=== PATIENT | female | born 1995 | race Caucasian/White ===

== ENCOUNTER → 2016-07-29 | Outpatient (CLI) | payer OTHER ==
[~2016-07-29] MED LIST: ACNE MED; AMOXIL875 MG; IBUPROFEN PO; IBUPROFEN800 MG PO; METHYLIN20 MG PO; NAPROSYN250 M1 PO; NO MEDICATIONS; ORUDIS75 M1 PO; PHENERGAN25 M1 PO; VICODIN 5/500 T1 TAB PO; VIVANCE PO; VYVANSE30 MG PO
--- NOTE | ~2016-07-29 | US6 ---
[facility] A Service of [facility] RADIOLOGY TEXT RESULTS PATIENT: PHIL ABEL LOCATION: [facility] : [birth year] UNIT #: [id number] AGE: [address]: Guillaume Kerr III, MD SEX: F ORDER DR: [id number] [facility] [address] [facility]. [place], [place] [address] [id number] O MR#: [id number] Acc #: [id number] NAME: PHIL ABEL. : 1995 SEX: F STUDY DATE/TIME: 07/29/2016 7:18 UNIT: [facility] ROOM: STUDY DESCRIPTION: US Abdominal Limited Attending Physician: Guillaume Kerr III, M.D. Ordering Physician: Guillaume Kerr III, M.D. Primary Care Physician: Alexandria Webb M.D. MEDICAL IMAGING REPORT This report is preliminary unless electronic signature is present EXAM Right upper quadrant abdominal ultrasound INDICATION Abdominal pain and nausea for the past month. Lap-Band surgery February 2016. PROCEDURE Parsosn-scale and Doppler imaging right upper quadrant of the abdomen. COMPARISON 07/08/2015. FINDINGS Pancreas mostly obscured by bowel gas and not well seen. The liver measures 14 cm. No liver mass on submitted images. Right kidney measures 9.5 cm. No hydronephrosis. There are stones in the gallbladder. Gallbladder is contracted. The gallbladder wall measures approximately 4 mm in thickness. No pericholecystic fluid. Common duct measures 2 mm. IMPRESSION Cholelithiasis. Gallbladder is contracted. There is mild gallbladder wall thickening which probably is related to contraction. There is no pericholecystic fluid or bile duct dilation. Findings equivocal for acute cholecystitis. If there is ongoing clinical suspicion, HIDA scan may be helpful. Dictated by... Gasper Lu M.D. THIS IS AN ELECTRONICALLY VERIFIED REPORT Gasper Lu M.D. at 08/01/2016 7:41 AM [facility] A Service of [facility] RADIOLOGY TEXT RESULTS PATIENT: PHIL ABEL LOCATION: [facility] #: [id number] : [birth year] UNIT #: [id number] AGE: [address]: Guillaume Kerr III, MD SEX: F ORDER DR: PARMINDER/meghann TD: 07/29/2016 11:10 JOB #: [id number] MEDICAL IMAGING REPORT Page 1 of 1 COPY
== END | disposition home or self-care (01) ==
LOC: CGUS 06:52
DX: R10.11 Right upper quadrant pain (principal); R11.0 Nausea; K80.21 Calculus of gallbladder without cholecystitis with obstruction
CPT/HCPCS: 76705

== ENCOUNTER 2016-08-04 16:38 | Emergency (ER) | payer OTHER ==
[2016-08-04 17:29] LABS: BASOPHIL# 0.1 X10e3 (0-0.3); BASOPHIL% 0.6 % (0-2.5); EOSINOPHIL# 0.1 X10e3 (0-0.7); EOSINOPHIL% 1.2 % (0.0-7.0); HEMATOCRIT 44.9 % (35.0-45.0); HEMOGLOBIN 14.5 gm/dL (12.0-16.0); LYMPHOCYTE# 2.8 X10e3 (1.0-3.5); LYMPHOCYTE% 25.5 % (17.0-45.0); MEAN CELL VOLUME 82.1 FL (83-96); MEAN CORPUSCULAR HEMOGLOBIN 26.5 PG (28-34); MEAN CORPUSCULAR HGB CONC 32.3 g/dL (30-36); MONOCYTE# 0.7 X10e3 (0-1.0); MONOCYTE% 6.3 % (3.0-12.0); NEUTROPHIL# 7.2 X10e3 (1.5-7.1); NEUTROPHIL% 66.4 % (40-75); PLATELET COUNT 278 X10e3 (140-420); RED BLOOD COUNT 5.47 X10e (3.90-5.30); RED CELL DISTRIBUTION WIDTH 14.6 % (11.0-15.5); WHITE BLOOD COUNT 10.9 X10e3 (4.0-10.5)
[2016-08-04 17:33] LABS: DIFF IND NO
[2016-08-04 17:54] LABS: URINE SOURCE CLEAN CATCH
[2016-08-04 17:56] LABS: ALBUMIN SERUM 4.6 g/dL (3.5-5.0); BILIRUBIN, DIRECT 0.1 mg/dL (0.0-0.2); BILIRUBIN,INDIRECT 0.9 mg/dL (0.0-0.9); BUN/CREATININE RATIO 18.57; CALCIUM SERUM 9.6 mg/dL (8.4-10.2); CREATININE SERUM 0.7 mg/dL (0.6-1.4); GLOM FILT RATE Estimated 125.6 mL/min (>60); POTASSIUM 3.7 mmol/L (3.5-5.1)
[2016-08-04 18:00] LABS: URINE APPEARANCE CLOUDY; URINE BILIRUBIN NEG (NEG); URINE BLOOD NEG (NEG); URINE COLOR YELLOW; URINE GLUCOSE NEG (NEG); URINE KETONE TRACE (NEG); URINE LEUKOCYTE ESTERASE TRACE (NEG); URINE NITRATE NEG (NEG); URINE PH 5.5 (5-8); URINE PROTEIN NEG (NEG); URINE SPECIFIC GRAVITY 1.026 (1.003-1.035)
[2016-08-04 18:03] LABS: CULTURE INDICATED? YES; URBCS1 AUWI 0-2 /[HPF] (0-2); URINE BACTERIA AUWI 1+ (NEGATIVE); URINE SQUAMOUS EPITHELIAL CELL MOD /[HPF]
[2016-08-09] MEDS ORDERED: PHENERGAN25 M1 PO (07:07)
== END 2016-08-04 20:15 | disposition home or self-care (01) ==
LOC: CED 16:38
DX: K80.70 Calculus of gallbladder and bile duct without cholecystitis without obstruction (principal); F17.200 Nicotine dependence, unspecified, uncomplicated; Z90.89 Acquired absence of other organs; Z91.040 Latex allergy status; Z91.09 Other allergy status, other than to drugs and biological substances
CPT/HCPCS: 80048; 80076; 81003; 83690; 84703; 85025; 87086; 96361; 96374; 96375; 99284; J1885; J2405

== ENCOUNTER → 2016-08-09 | Day surgery (SDC) | payer OTHER ==
--- NOTE | ~2016-08-09 | OR ---
Unit #: [id number] #: [id number] Patient: PHIL ABEL [id number] [address] [place], [place] [address] [id number] O MR#: [id number] NAME: PHIL ABEL ROOM: Date of Procedure: 08/09/2016 Admission Date: 08/09/2016 Surgeon: Guillaume Kerr III, M.D. : 1995 Attending Physician: Guillaume Kerr III, M.D. Primary Care Physician: Alexandria Webb M.D. OPERATIVE REPORT PREOPERATIVE DIAGNOSIS Chronic cholecystitis. POSTOPERATIVE DIAGNOSIS Chronic cholecystitis. PROCEDURE PERFORMED Laparoscopic cholecystectomy. ANESTHESIA General. SPECIMENS Gallbladder to Pathology. COMPLICATIONS None apparent. INDICATIONS FOR PROCEDURE This is a 20-year-old lady, who is status post lap banding and she has had some unusual nausea. We checked a biliary workup, which was consistent with chronic cholecystitis. She is here today for laparoscopic cholecystectomy. DESCRIPTION OF PROCEDURE After consent was obtained, the patient was brought to the operating room and placed in the supine position. General anesthetic was administered and preoperative antibiotics were given. I prepped and draped her abdomen in standard surgical fashion. I made a 5-mm incision in the right upper quadrant. I used an Optiview to enter into the peritoneal cavity without any difficulty. CO2 pneumoperitoneum was then established. Next, a second 5-mm port was placed in the umbilical region and an 11-mm port was placed in the midepigastric region and a third 5-mm port was placed in the right lateral subcostal region. I did take a look at her upper stomach and did not see any unusual inflammation around the band tubing. She did have a very contracted small gallbladder. 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 I did carefully dissect out the cystic duct and cystic artery and after these were carefully identified, I then placed 2 clips proximally and one clip distally along both structures and then they were divided. The gallbladder was then taken off the liver bed using the hook cautery. There was no spillage of bile. Again, the gallbladder was Unit #: [id number] #: [id number] Patient: PHIL ABEL almost intrahepatic, because of the cleft nature of the liver. I was able to extract the gallbladder through the epigastric port site without disrupting the wall of the gallbladder. I did not have to dilate the fascia. I had excellent hemostasis and all needle, sponge, and instrument counts were correct x2. I then removed all the trocars and released the pneumoperitoneum. All the incisions were injected with 0.25% plain Marcaine and I reapproximated the skin edges with interrupted 4-0 Vicryl subcuticular suture. Steri-Strips were then applied. The patient tolerated the procedure without any problems and returned to the recovery room in stable condition. Dictated by... Guillaume Kerr III, M.D. VCL/tino TD: 08/09/2016 23:46 JOB #: [id number] OPERATIVE REPORT Page 1 of 1 X Guillaume Kerr III, MD PROCEDURE OPERATIVE NOTE
== END | disposition home or self-care (01) ==
LOC: CSUR 06:41
DX: K80.10 Calculus of gallbladder with chronic cholecystitis without obstruction (principal); K21.9 Gastro-esophageal reflux disease without esophagitis; F17.210 Nicotine dependence, cigarettes, uncomplicated; F41.9 Anxiety disorder, unspecified; F32.9 Major depressive disorder, single episode, unspecified; G47.33 Obstructive sleep apnea (adult) (pediatric); E66.9 Obesity, unspecified; Z68.32 Body mass index [BMI] 32.0-32.9, adult; Z91.040 Latex allergy status; Z91.048 Other nonmedicinal substance allergy status; Z79.1 Long term (current) use of non-steroidal anti-inflammatories (NSAID); Z79.899 Other long term (current) drug therapy; Z98.890 Other specified postprocedural states
CPT/HCPCS: 84703; 88304; J0330; J0690; J1100; J2250; J2405; J2550; J2710; J3010

== ENCOUNTER 2016-09-17 20:32 | Emergency (ER) | payer OTHER ==
--- NOTE | ~2016-09-17 | CT4 ---
[facility]. [facility] A Service of [facility] RADIOLOGY TEXT RESULTS PATIENT: PHIL ABEL LOCATION: SED : [birth year] UNIT #: [id number] AGE: [address]: Manav Camacho MD SEX: F ORDER DR: [id number] [place] [id number] E MR#: [id number] Acc #: [id number] NAME: PHIL ABEL. : 1995 SEX: F STUDY DATE/TIME: 09/17/2016 22:02 UNIT: SED ROOM: STUDY DESCRIPTION: CT Abd and Pelv Wo Cont Attending Physician: Manav Camacho M.D. Ordering Physician: Manav Camacho M.D. Primary Care Physician: Alexandria Webb M.D. MEDICAL IMAGING REPORT This report is preliminary unless electronic signature is present. EXAM CT abdomen and pelvis without contrast, 09/17/2016 HISTORY 21-year-old female with left upper quadrant abdominal pain for [address] abdomen and pelvis 06/27/2015 TECHNIQUE Helical scan performed through the abdomen and pelvis without IV contrast. Coronal and sagittal reformatted images. This CT exam was performed with one or more of the following radiation dose reduction techniques: automatic exposure control, adjustment of mA and/or kV according to patient size, and iterative reconstruction. FINDINGS Visualized lung bases are unremarkable. Gastric Lap-Band. Gallbladder surgically absent. The liver, spleen, pancreas, and both adrenal glands are within normal limits. There is a 1-2 mm stone along the posterior dependent aspect of the urinary bladder. Minimal prominence of the right ureter may suggest a recently passed right ureteral stone. There is a 2 mm nonobstructing right intrarenal stone. No left-sided renal calculi. Abdominal aorta normal in course and caliber. Small bowel is unremarkable without obstruction. Appendix is normal. Colon is otherwise unremarkable. No free fluid or free air. Urinary bladder is otherwise unremarkable. Uterus and adnexa are within normal limits. No free pelvic fluid. No acute bony abnormality. [facility] A Service of [facility] RADIOLOGY TEXT RESULTS PATIENT: PHIL ABEL LOCATION: [facility] #: [id number] : [birth year] UNIT #: [id number] AGE: [address]: Manav Camacho MD SEX: F ORDER DR: IMPRESSION 1. A 1-2 mm stone along the posterior dependent aspect the urinary bladder. There is minimal prominence of the right ureter which may suggest a recently passed right ureteral stone. There is also a 2 mm nonobstructing right intrarenal stone. 2. Normal appendix. 3. Cholecystectomy and gastric Lap-Band. Dictated by... Singh Harris M.D. THIS IS AN ELECTRONICALLY VERIFIED REPORT Singh Harris M.D. at 09/18/2016 6:16 PM CATE/karen TD: 09/18/2016 00:21 JOB #: [id number] MEDICAL IMAGING REPORT Page 1 of 1
[2016-09-17] MEDS ORDERED: NO MEDICATIONS (20:42)
[2016-09-17 21:24] LABS: URINE SOURCE CLEAN CATCH
[2016-09-17 21:26] LABS: URINE APPEARANCE CLEAR; URINE BILIRUBIN NEG (NEG); URINE BLOOD 3+ (NEG); URINE COLOR YELLOW; URINE GLUCOSE NEG (NORM); URINE KETONE NEG (NEG); URINE LEUKOCYTE ESTERASE NEG (NEG); URINE NITRATE NEG (NEG); URINE PH 5.5 (5-8); URINE PROTEIN TRACE (NEG); URINE SPECIFIC GRAVITY >=1.030 (1.003-1.035); URINE UROBILINOGEN 0.2 MG/DL (NORM)
[2016-09-17 21:28] LABS: MICRO INDICATED? YES
[2016-09-17 21:34] LABS: URINE RBC 100-200 /[HPF] (0-2)
[2016-09-17 21:36] LABS: CULTURE INDICATED? YES; URINE BACTERIA 2+ (NEG); URINE MUCUS PRESENT; URINE SQUAMOUS EPITHELIAL CELL MANY /[HPF]
[2016-09-17 21:41] LABS: BASOPHIL# 0.1 X10e3 (0-0.3); BASOPHIL% 1.1 % (0-2.5); EOSINOPHIL# 0.2 X10e3 (0-0.7); EOSINOPHIL% 1.9 % (0.0-7.0); HEMATOCRIT 44.1 % (35.0-45.0); HEMOGLOBIN 14.5 gm/dL (12.0-16.0); LYMPHOCYTE# 3.4 X10e3 (1.0-3.5); LYMPHOCYTE% 31.6 % (17.0-45.0); MEAN CORPUSCULAR HEMOGLOBIN 27.6 PG (28-34); MEAN CORPUSCULAR HGB CONC 32.9 g/dL (30-36); MEAN PLATELET VOLUME 8.8 FL (6.5-11.5); MONOCYTE# 0.6 X10e3 (0-1.0); MONOCYTE% 5.5 % (3.0-12.0); NEUTROPHIL# 6.5 X10e3 (1.5-7.1); NEUTROPHIL% 59.9 % (40-75); PLATELET COUNT 298 X10e3 (140-420); RED BLOOD COUNT 5.25 X10e (3.90-5.30); RED CELL DISTRIBUTION WIDTH 15.5 % (11.0-15.5); WHITE BLOOD COUNT 10.9 X10e3 (4.0-10.5)
[2016-09-17 21:45] LABS: DIFF IND NO
[2016-09-17 21:59] LABS: ALBUMIN SERUM 4.5 g/dL (3.5-5.0); BILIRUBIN,TOTAL 0.6 mg/dL (0.2-2.0); BUN/CREATININE RATIO 12.5; CALCIUM SERUM 9.1 mg/dL (8.4-10.2); CREATININE SERUM 0.8 mg/dL (0.6-1.4); GLOM FILT RATE Estimated 106.2 mL/min (>60); POTASSIUM 3.7 mmol/L (3.5-5.1)
== END 2016-09-17 23:02 | disposition home or self-care (01) ==
LOC: SED 20:32
PROVIDERS: Emergency Medicine
DX: N20.1 Calculus of ureter (principal); Z91.040 Latex allergy status; Z88.8 Allergy status to other drugs, medicaments and biological substances
CPT/HCPCS: 36415; 74176; 80053; 81003; 84703; 85025; 87086; 96372; 99284; J1170

== ENCOUNTER 2016-10-07 16:50 | Emergency (ER) | payer OTHER ==
--- NOTE | ~2016-10-07 | CR72 ---
[facility]. [facility] A Service of [facility] & [facility] RADIOLOGY TEXT RESULTS PATIENT: PHIL ABEL LOCATION: SED : [birth year] UNIT #: [id number] AGE: [address]: Lianet Tapia MD SEX: F ORDER DR: [id number] [address] [address] [id number] E MR#: [id number] Acc #: [id number] NAME: PHIL ABEL : 1995 SEX: F STUDY DATE/TIME: 10/07/2016 17:46 UNIT: SED ROOM: STUDY DESCRIPTION: CR Chest Single View Portable Attending Physician: Lianet Tapia M.D. Ordering Physician: Lianet Tapia M.D. Primary Care Physician: Alexandria Webb M.D. MEDICAL IMAGING REPORT This report is preliminary unless electronic signature is present. EXAM Portable chest x-ray 10/07/2016 HISTORY Chest pain. Worse today cannot catch breath passing out syncope, chest pain 3 days duration. FINDINGS AP radiograph of the chest is presented. Comparison 02/26/2016. Heart mediastinum normal in size and contour. Lung volumes slightly low. There is no clear indication of acute infectious or inflammatory disease. No pleural effusion or pneumothorax. There is a 1.3 cm nodular density superimposed over the right lung base. Not clearly in the anticipated location of nipple shadow artifact given location and patient positioning. It is possible that this could represent nipple shadow artifact, however. Given the patient's young age, true pulmonary nodule seems unlikely. I would recommend clarification with a formal PA and lateral radiographs of the chest with nipple markers in place. If not clarified on repeat plain radiograph then CT would be recommended for further assessment. Dictated by... Ritesh Ruiz M.D. THIS IS AN ELECTRONICALLY VERIFIED REPORT Ritesh Ruiz M.D. at 10/10/2016 7:52 AM HELENA/sherlyn TD: 10/07/2016 23:18 JOB #: [id number] MEDICAL IMAGING REPORT Page 1 of 1
--- NOTE | ~2016-10-07 | EKG ---
PATIENT: PHIL ABEL UNIT #: [id number] Ventricular Rate: 57 BPM Atrial Rate: 57 BPM P-R Interval: 140 ms QRS Duration: 78 ms Q-T Interval: 410 ms QTC Calculation(Bezet): 399 ms P Largo: 50 degrees Calculated R Largo: 60 degrees Calculated T Largo: 44 degrees Diagnosis Line: Sinus bradycardia with sinus arrhythmia Diagnosis Line: Otherwise normal ECG Diagnosis Line: When compared with ECG of 26-FEB-2016 08:43, Diagnosis Line: No significant change was found Diagnosis Line: Confirmed by JORDANA DIAMOND MD ([id number]) on Diagnosis Line: 10/10/2016 12:44:31 PM INTERPRETING MD: DARA TOVAR
[2016-10-07 17:23] LABS: BASOPHIL# 0.1 X10e3 (0-0.3); BASOPHIL% 0.6 % (0-2.5); EOSINOPHIL# 0.2 X10e3 (0-0.7); EOSINOPHIL% 1.4 % (0.0-7.0); HEMATOCRIT 44.2 % (35.0-45.0); HEMOGLOBIN 14.5 gm/dL (12.0-16.0); LYMPHOCYTE# 2.3 X10e3 (1.0-3.5); LYMPHOCYTE% 21.6 % (17.0-45.0); MEAN CELL VOLUME 84.5 FL (83-96); MEAN CORPUSCULAR HEMOGLOBIN 27.7 PG (28-34); MEAN CORPUSCULAR HGB CONC 32.8 g/dL (30-36); MEAN PLATELET VOLUME 9.1 FL (6.5-11.5); MONOCYTE# 0.8 X10e3 (0-1.0); NEUTROPHIL# 7.5 X10e3 (1.5-7.1); NEUTROPHIL% 69.4 % (40-75); PLATELET COUNT 279 X10e3 (140-420); RED BLOOD COUNT 5.23 X10e (3.90-5.30); RED CELL DISTRIBUTION WIDTH 15.2 % (11.0-15.5); WHITE BLOOD COUNT 10.8 X10e3 (4.0-10.5)
[2016-10-07 17:28] LABS: DIFF IND NO
[2016-10-07 17:33] LABS: POC - CKMB <1.0 ng/mL (0.0-7.9); POC - TROPONIN <0.05 ng/mL (<=0.05)
[2016-10-07 17:35] LABS: INR 1.2; PROTHROMBIN TIME (PATIENT) 13.6 SECONDS (9.5-12.4)
[2016-10-07 17:42] LABS: ALBUMIN SERUM 4.5 g/dL (3.5-5.0); BILIRUBIN, DIRECT 0.1 mg/dL (0.0-0.2); BILIRUBIN,INDIRECT 0.6 mg/dL (0.0-0.9); BILIRUBIN,TOTAL 0.7 mg/dL (0.2-2.0); BUN/CREATININE RATIO 11.25; CALCIUM SERUM 9.3 mg/dL (8.4-10.2); CREATININE SERUM 0.8 mg/dL (0.6-1.4); GLOM FILT RATE Estimated 106.2 mL/min (>60); PARTIAL THROMBOPLASTIN TIME 31.8 SECONDS (25.6-38.1); POTASSIUM 3.6 mmol/L (3.5-5.1); PROTEIN TOTAL SERUM 7.6 g/dL (6.0-8.3)
[2016-10-07 17:47] LABS: AMPHETAMINE NEG (NEG); BARBITURATES NEG (NEG); BENZODIAZEPINES NEG (NEG); COCAINE NEG (NEG); MARIJUANA POS (NEG); OPIATES NEG (NEG); TRICYCLIC ANTIDEPRESSANTS NEG (NEG); U METHADONE NEG (NEG)
[2016-10-07 17:49] LABS: DDIMER <200 NG/ML (0-200)
[2016-10-07 19:08] LABS: POC - CKMB <1.0 ng/mL (0.0-7.9)
[2016-10-07 19:09] LABS: POC - TROPONIN <0.05 ng/mL (<=0.05)
== END 2016-10-07 19:23 | disposition home or self-care (01) ==
LOC: SED 16:50
PROVIDERS: Student in an Organized Health Care Education/Training Program
DX: R09.1 Pleurisy (principal); N64.4 Mastodynia; F12.10 Cannabis abuse, uncomplicated; Z90.49 Acquired absence of other specified parts of digestive tract; Z87.891 Personal history of nicotine dependence; Z91.040 Latex allergy status
CPT/HCPCS: 36415; 71010; 80048; 80076; 80307; 82553; 83880; 84484; 84703; 85025; 85379; 85610; 85730; 93005; 96374; 96375; 99285; J1885; J2060